=== PATIENT | male | born 1955 | race Caucasian/White ===

== ENCOUNTER → 2023-11-20 07:28 | Outpatient (REF) | payer OTHER, SELFPAY | LOC: RAD 07:28 | PROVIDERS: ATTENDING PHYSICIAN Specialist; FAMILY PHYSICIAN Internal Medicine | DX: M19.012 Primary osteoarthritis, left shoulder (principal) | CPT/HCPCS: 73200 ==

== ENCOUNTER 2024-01-01 05:44 | Day surgery (SDC) | payer OTHER, SELFPAY ==
--- NOTE | 2023-12-09 09:49 | CM ---
Patient is scheduled for an elective L TSA on 01/01/24- he is a same day patient. Spoke with patient prior to surgery. Introduced role of Orthopedic Navigator. Patient reports that he lives with his in a two story home. Currently he functions
independently. He does not use any DME and has never had VN services. PCP is Dr. Mic Reyez.
Discussed orthopedic program and post surgical plans. Patient will return home when directed by surgeon. Reviewed MD follow up and transition to outpatient therapy. Patient is in agreement with tentative plan and states that his will be home
with him and can assist if needed.
Patient will complete online education.
Plan: Orthopedic Navigator will be involved in the care of patient after surgery and will reassess discharge needs at that time.
[2023-12-15 13:00] VITALS: BMI 30.9
[2023-12-15 14:08] LABS: Hematocrit 43.5 % (39.0-52.0); Hemoglobin 14.9 g/dL (13.0-18.0); Mean Corp Hgb Conc. 34.3 g/dL (33.0-37.0); Mean Corpuscular Volume 90.6 fL (80.0-94.0); Mean Platelet Volume 9.6 fL (7.4-10.4); Platelet Count 196 10^3/uL (130-400); Red Cell Dist. Width 12.3 % (11.5-14.5); White Blood Cell Count 7.8 10^3/uL (4.8-10.8)
[2023-12-15 14:34] LABS: ALT (SGPT) 24 U/L (0-50); AST (SGOT) 27 U/L (17-59); Albumin 4.4 g/dl (3.5-5.0); Alkaline Phosphatase 83 U/L (38-126); Blood Urea Nitrogen 30 mg/dl (9-20); Calcium 9.5 mg/dl (8.4-10.2); Carbon Dioxide 31 mmol/L (22-30); Chloride 98 mmol/L (98-107); Estimated Creatinine Clearance 83 ml/min; Glucose 96 mg/dl (70-99); Sodium 139 mmol/L (135-145); Total Bilirubin 0.7 mg/dl (0.2-1.3); Total Protein 7.1 g/dl (6.3-8.2); eGFR > 60.00
[2023-12-15 15:01] LABS: Glycohemoglobin (HgbA1c) 5.6 % (4.0-5.6)
[2023-12-15 15:58] VITALS: BMI 30.9
[2024-01-01] VITALS (8 sets, daily range): BP systolic 109–127; BP diastolic 62–75
[2024-01-01] MEDS: TYLENOL 1000 MG PO (07:11)
[2024-01-01] MEDS: CELEBREX 200 MG PO (07:11)
[2024-01-01] MEDS: NORMOSOL-R 1000 IV (07:11)
[2024-01-01] MEDS: ANCEF 5 IV (12:38)
== END 2024-01-01 13:09 | disposition home or self-care (01) ==
LOC: SDS 05:44
PROVIDERS: ATTENDING PHYSICIAN Specialist; FAMILY PHYSICIAN Internal Medicine; OTHER PHYSICIAN Internal Medicine Cardiovascular Disease; OTHER PHYSICIAN Physician Assistant
DX: M19.012 Primary osteoarthritis, left shoulder (principal)
CPT/HCPCS: 23472; C1713; C1776; 36415; 73020; 80053; 83036; 85027; 87070; 93005

== ENCOUNTER → 2024-06-28 07:16 | Outpatient (REF) | payer OTHER, SELFPAY | LOC: RAD 07:16 | PROVIDERS: ATTENDING PHYSICIAN Specialist; FAMILY PHYSICIAN Internal Medicine | DX: M25.511 Pain in right shoulder (principal) | CPT/HCPCS: 73200 ==